=== PATIENT | male | born 2000 | race Caucasian/White ===

== ENCOUNTER → 2019-11-23 | Outpatient (CLI) | payer OTHER ==
--- NOTE | 2019-11-23 16:17 | REP ---
Thoracic spine series: Four views. History: Pain in the thoracic spine. No comparison imaging. Findings: Thoracic kyphosis is somewhat exaggerated without significant scoliosis. There is mild chronic wedging of several mid thoracic vertebrae and a discogenic spurring is present in this young patient. No acute fracture is seen. No paravertebral soft-tissue mass is seen. Swimmer's lateral view shows no additional abnormality. 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 No acute fracture seen. Electronically Signed by Ramin Tobar MD 11/23/2019 04:08 P
--- NOTE | 2019-11-23 16:40 | REP ---
Lumbar spine six views: Vertebral body heights, interspacing alignment are normal. There is a large Schmorl's node anteriorly in the L3 superior endplate. There is no spondylolysis or spondylolisthesis. The pedicles and facets are unremarkable. Sacroiliac articulations are unremarkable. Impression: Essentially negative lumbar spine except for a large L3 Schmorl's node. Electronically Signed by Lazaro Agudelo MD 11/23/2019 04:32 P
== END ==
LOC: M LRY 15:28
PROVIDERS: ATTEND Physician Assistant
DX: M51.34 Other intervertebral disc degeneration, thoracic region (principal); M40.294 Other kyphosis, thoracic region; M51.46 Schmorl's nodes, lumbar region; G89.29 Other chronic pain; M54.5 Low back pain
CPT/HCPCS: 72072; 72110; G0463